=== PATIENT | female | born 1995 | race Caucasian/White ===

== ENCOUNTER 2019-07-21 21:12 | Emergency (ER) | payer MEDICAID ==
[~2019-07-21] VITALS: Ht 165.1 cm; Wt 63.0 kg
[~2019-07-21 21:12] MED LIST: BIRTH CONTROL PILLS PO
--- NOTE | 2019-07-21 21:30 | NUR ---
pt requested female only providers.
[2019-07-22 00:13] VITALS: BP 124/75
[2019-07-22] MEDS ORDERED: acetaminophen 325mg tablet PO ONE (00:30)
[2019-07-22] MEDS ORDERED: CefTRIAXone 1000mg IM Kit (w/lidocaine diluent) IM ONE (00:30)
[2019-07-22] MEDS ORDERED: azithromycin 250mg tablet PO ONE (00:30)
== END 2019-07-22 01:01 | disposition home or self-care (01) ==
LOC: ER 21:12
DX: R19.04 Left lower quadrant abdominal swelling, mass and lump (principal); E03.9 Hypothyroidism, unspecified; Z79.899 Other long term (current) drug therapy
CPT/HCPCS: 96372; 99283; J0696; Q0112